=== PATIENT | female | born 1970 | race Caucasian/White ===

== ENCOUNTER 2020-05-15 09:39 | Outpatient (CLI) | payer OTHER, SELFPAY ==
--- NOTE | ~2020-05-15 | MM_ITS ---
EXAMINATION: MM screening vic BI w elyse HISTORY: Screening mammogram TECHNIQUE: Craniocaudal and mediolateral oblique 3-D tomosynthesis images were obtained and synthetic 2-D images were generated. CAD analysis was submitted and interpreted. COMPARISON: 920 , , 01/27/2017 bilateral digital screening mammogram examinations BREAST PARENCHYMAL COMPOSITION: There are scattered areas of fibroglandular density. FINDINGS: Occasional 6 mm or smaller low-density circumscribed opacities are noted in the right breas t, predominantly laterally. There is no evidence of suspicious mass, calcification, or architectural distortion to suggest malignancy in either breast. There has been no suspicious interval change. IMPRESSION: 1. No mammographic evidence of malignancy. 2. Recommend routine screening mammography in one year. BI-RADS Category 2: Benign finding(s). Reviewed, dictated and finalized at location A.
== END 2020-05-15 09:40 | disposition home or self-care (01) ==
LOC: ANHIMG 09:43
PROVIDERS: PCP Internal Medicine; Visit Provider Obstetrics & Gynecology
DX: Z12.31 Encounter for screening mammogram for malignant neoplasm of breast (principal)
CPT/HCPCS: 77063; 77067

== ENCOUNTER 2021-05-29 07:39 | Outpatient (CLI) | payer OTHER, SELFPAY ==
--- NOTE | ~2021-05-29 | MM_ITS ---
EXAMINATION: MM screening vic BI w elyse HISTORY: Screening mammogram TECHNIQUE: Craniocaudal and mediolateral oblique 3-D tomosynthesis images were obtained and synthetic 2-D images were generated. CAD analysis was submitted and interpreted. COMPARISON: 05/15/2020, 04/03/2019, 03/09/2018 bilateral screening mammogram examinations BREAST PARENCHYMAL COMPOSITION: There are scattered areas of fibroglandular density. FINDINGS: Occasional 7 mm or smaller low-density stable benign-appearing circumscribed opacities are noted. There is no evidence of suspicious mass, calcification, or architectural distortion to suggest malignancy in either breast. There has been no suspicious interval change. IMPRESSION: 1. No mammographic evidence of malignancy. 2. Recommend routine screening mammography in one year. BI-RADS Category 2: Benign finding(s). Reviewed, dictated and finalized at location A. ER DOOR ASSEMBLER
== END 2021-05-29 07:40 | disposition home or self-care (01) ==
LOC: ANHIMG 07:41
PROVIDERS: PCP Internal Medicine; Visit Provider Obstetrics & Gynecology
DX: Z12.31 Encounter for screening mammogram for malignant neoplasm of breast (principal)
CPT/HCPCS: 77063; 77067

== ENCOUNTER 2022-08-19 08:15 | Outpatient (CLI) | payer OTHER, SELFPAY ==
--- NOTE | ~2022-08-19 | MM_ITS ---
EXAMINATION: MM screening vic BI w elyse HISTORY: Screening TECHNIQUE: Craniocaudal and mediolateral oblique 3-D tomosynthesis images were obtained and synthetic 2-D images were generated. CAD analysis was submitted and interpreted. COMPARISON: Comparison to multiple prior studies sequentially, with oldest reviewed study dated 12/08. BREAST PARENCHYMAL COMPOSITION: There are scattered areas of fibroglandular density. FINDINGS: There is no evidence of suspicious mass, calcification, or architectural distortion to sugg est malignancy in either breast. There has been no suspicious interval change. IMPRESSION: 1. No mammographic evidence of malignancy. 2. Recommend routine screening mammography in one year. BI-RADS Category 1: Negative Reviewed, dictated and finalized at location A. DRIVING SUPERVISOR
== END 2022-08-19 08:16 | disposition home or self-care (01) ==
PROVIDERS: PCP Internal Medicine; Visit Provider Obstetrics & Gynecology
DX: Z12.31 Encounter for screening mammogram for malignant neoplasm of breast (principal)
CPT/HCPCS: 77063; 77067

== ENCOUNTER → 2022-10-05 07:31 | Outpatient (CLI) | payer OTHER, SELFPAY ==
--- NOTE | ~2022-10-05 | MR_ITS ---
MRI of the cervical spine Clinical History: Bile stenosis Technique: Axial T2-weighted and gradient images, and sagittal T1-weighted, T2-weighted, and STIR tabatha ges were acquired. Findings: There is straightening of the normal cervical lordosis. No fracture or sublocation seen. No suspicious bone marrow signal abnormality seen. At C2-C3, there is no significant disc bulge or herniation. No spinal canal stenosis, cord compressio n, or neural foraminal narrowing. At C3-C4, there is no significant disc bulge or herniation. No spinal canal stenosis, cord compressio n, or definite neural foraminal narrowing. At C4-C5, there is no disc bulge or herniation. No spinal canal stenosis, cord compression, or defini te neural foraminal narrowing. At C5-C6, disc osteophyte complex results in mild canal stenosis and mild flattening of the ventral c ord. There is probable left neural foraminal narrowing. Right neural foramen preserved. At C6-C7, diffuse disc osteophyte complex results in mild canal stenosis and mild ventral cord flatte nadja/compression. There is bilateral neural foraminal narrowing, left worse than right. No abnormal signal seen in the spinal cord itself. Paravertebral soft tissues are unremarkable. Impression: Mild canal stenosis and ventral cord flattening/compression at C5-C6 and C6-C7, related to disc osteo phyte complexes. There is neural foraminal narrowing at these levels, as detailed above. Reviewed, dictated and finalized at [facility]. Impression: Mild canal stenosis and ventral cord flattening/compression at C5-C6 and C6-C7, related to disc osteophyte complexes. There is neural foraminal narrowing at t hese levels, as detailed above.
== END ==
PROVIDERS: PCP Internal Medicine; Visit Provider Orthopaedic Surgery
DX: M48.02 Spinal stenosis, cervical region (principal)
CPT/HCPCS: 72141

== ENCOUNTER 2023-09-14 09:07 | Outpatient (CLI) | payer OTHER, SELFPAY ==
--- NOTE | ~2023-09-14 | MM_ITS ---
EXAMINATION: MM screening vic BI w elyse HISTORY: Screening TECHNIQUE: Craniocaudal and mediolateral oblique 3-D tomosynthesis images were obtained and synthetic 2-D images were generated. CAD analysis was submitted and interpreted. COMPARISON: Comparison to multiple prior studies sequentially, with oldest reviewed study dated 01/27. BREAST PARENCHYMAL COMPOSITION: There are scattered areas of fibroglandular density. FINDINGS: There is no evidence of suspicious mass, calcification, or architectural distortion to sugg est malignancy in either breast. There has been no suspicious interval change. IMPRESSION: 1. No mammographic evidence of malignancy. 2. Recommend routine screening mammography in one year. BI-RADS Category 1: Negative Reviewed, dictated and finalized at location A. ONAL RECRUITER
== END 2023-09-14 09:08 | disposition home or self-care (01) ==
LOC: ANHIMG 09:10
PROVIDERS: PCP Obstetrics & Gynecology; Visit Provider Obstetrics & Gynecology
DX: Z12.31 Encounter for screening mammogram for malignant neoplasm of breast (principal)
CPT/HCPCS: 77063; 77067

== ENCOUNTER 2024-09-20 07:57 | Outpatient (CLI) | payer OTHER, SELFPAY ==
--- NOTE | ~2024-09-20 | MM_ITS ---
EXAMINATION: MM screening [facility] BI w elyse HISTORY: Screening mammogram TECHNIQUE: Craniocaudal and mediolateral oblique 3-D tomosynthesis images were obtained and synthetic 2-D images were generated. CAD analysis was submitted and interpreted. COMPARISON: 09/14/2023, 09/06/2022, 05/29/2021 BREAST PARENCHYMAL COMPOSITION:Not Dense. There are scattered areas of fibroglandular density. FINDINGS: No suspicious mass, calcification, or architectural distortion are identified in either ro ast to suggest malignancy. There has been no suspicious interval change. IMPRESSION: No mammographic evidence of malignancy. Recommend routine screening mammography in one year. BI-RADS Category 1: Negative Reviewed, dictated and finalized at location . P RESERVATIONS COORDINATOR
--- OUTSIDE RECORDS SUMMARY | 2024-09-20 08:06 | XMS_ITS | Clinical Summary ---
Author Organization [facility] Address [address] [place] [id number] Care Team Providers Care Md Pediatric Allergist Name Role Phone TiffanieNat Seth VELÁZQUEZ Primary Care Provider [phone] Allergies No known active allergies Medications Cholecalciferol (VITAMIN D-3) 125 MCG (5000 UT) Tab Take 1 tablet (125 mcg total) by mouth daily. 04/19/2018 Active Multiple Vitamins-Mineral s (MULTIVITAL) Tab Take 1 tablet by mouth daily. 08/06/2015 Active Active Problems Problem Noted Date Diagnosed Date Thrombocytosis 05/15/2017 Swelling of ankle joint, right 12/17/2016 Immunizations Name Administration Dates Next Due Fluzone Adult - >Age 3 (Prefilled Syringe) 04/28 Influenza (Generic) 04/28/2020 MODERNA COVID-19 (12+) MRNA, LNP-S, PF, 100 MCG/ 0.5 ML DOSE 12/03/2020,11/05/2020 Td, Adsorbed, Preservative F ree, Adult Use, Lf Unspecified 01/26/2022,05/19/2020 Family History Medical History Relation Comments Diabetes Father Heart Disease Father Stroke Mother Relation Status Comments Father Alive Mother Alive Social History Tobacco Use Types Packs/Day Years Used Date Smoking Tobacco: Never Smokeless Tobacco: Never Tobacco Cessation:Counseling Given: No Alcohol Use Standard Drinks/Week Comments Yes 0 (1 standard drink = 0.6 oz pur e alcohol) socially PHQ-2 Answer Date Recorded Patient Health Questionnaire-2 Score 0 12/05/2023 Comments No Sex and Gender Information Value Date Recorded Sex Assigned at Not on file Legal Sex Female 4:45 PM CDT Gender Identity Not on file Sexual Orientation Not on file Last Filed Vital Signs Vital Sign Reading Time Taken Comments Blood Pressure 124/80 12/05/2023 4:37 PM CDT Pulse 111 12/05/2023 4:32 PM CDT Temperature 37.3 C (99.2 F) 12/05/2023 4:32 PM CDT Respiratory Rate 20 12/05/2023 4:32 PM CDT Oxygen Saturation 97% 12/05/2023 4:32 PM CDT Inhaled Oxygen Concentration - - Weight 76.7 kg (169 lb) 12/05/2023 4:32 PM CDT Height 154.9 cm (5' 1 ) 12/05/2023 4:32 PM CDT Body Mass Index 31.93 12/05/2023 4:32 PM CDT Plan of Treatment Health Maintenance Due Date Last Done Comments Cervical Cancer Screening Pap Smear (Age 30 to 64) Every 3 Years 1968 Hepatitis B Vaccines (1 of 3 - 19+ 3-dose series) 1987 Zoster Vaccines (1 of 2) 2018 Cervical Cancer Screening Pap with HPV Testing (Age 30 to 64) Every 5 Years 11/25/2020 11/26/2015 Cervical Cancer Screening with HPV 11/25/2020 Annual Physical 02/24/2023 02/24/2022 COVID-19 Vaccine ( season) 2024 12/03/2020, 11/05/2020 Influenza Adult (#1) 2024 04/28/2020, 04/28/20 PHQ-2 (Physician [place]) 07/18/2024 12/05/2023 Mammogram Screening 08/19/2024 08/19/2022, 05/29/2021, 05/15/2020, Additional history exists PHQ-2 (Physician [place]) 12/04/2024 12/05/2023 Colorectal Cancer Screening FIT-DNA (3 Years) 02/08/2025 02/08/2022, 02/08/2022 DTaP, Tdap and Td Vaccines (2 - Td or Tdap) 06/05/2032 06/05/2022, 01/26/2022, 05/19/2020 Hepatitis C Completed 05/19/2020 Meningococcal B Vaccine Aged Out No l onger eligible based on patient's age to complete this topic Meningococcal Vaccine Aged Out No jillian edgar eligible based on patient's age to complete this topic Pneumococcal Vaccine: Pediatrics (0 to 5 Years) and At-Risk Patients (6 to 64 Years) Aged Out No longer eligible based on patient's age to complete this topic RSV Immunizations Under 20 Months Aged Out No longer eligible based on patient's age to complete this topic Procedures Procedure Name Priority Date/Time Associated Diagnosis Comments MAMMOGRAM GENERIC (SCAN ORDER) 08/19/2022 COLOGUARD (EXACT SCIENCE) Routine 02/08/2022 6:40 AM CDT Screening for colon cancer HEPATITIS C ANTIBODY Routine 05/19/2020 12:04 PM UNDERGRADUATE ADVISOR Need for hepatitis C screening test OUTSIDE CYTOPATH CERV/VAG INTERPRET (PAP) Routine 11/26/2015 from Last 3 Months or Most Recently Relevant to Health Maintenance Results * MAMMOGRAM GENERIC (08/19/2022) Anatomical Region Laterality Modality Other 08/19/2022 [facility] Scanned SCANNING Final Resu lt * COLOGUARD (EXACT SCIENCE) (02/08/2022 6:40 AM CDT) COLOGUARD RESULT Negative Negative [employer] (CLIA #:[id number]) Comment: NEGATIVE TEST RESULT. A negative Cologuard result indicates a low likelihood that a colorectal cancer (CRC) or advanced adenoma (adenomatous polyps with more advanced pre-malignant features) is present. The chance that a person with a negative Cologuard test has a colorectal cancer is less than 1 in 1500 (negative predictive value >99.9%) or has an advanced adenoma is less than 5.3% (negative predictive value 94.7%). These data are based on a prospective cross-sectional study of 10,000 individuals at average risk for colorectal cancer who were screened with both Cologuard and colonoscopy. (Delfino Louis al, N Engl J Med 2014;370(14):3370-5807) The normal value (reference range) for this assay is negative. COLOGUARD RE-SCREENING RECOMMENDATION: Periodic colorectal cancer screening is an important part of preventive healthcare for asymptomatic individuals at average risk for colorectal cancer. Following a negative Cologuard result, the [place] [employer] and U.S. Multi-Society Task Force screening guidelines recommend a Cologuard re-screening interval of 3 years. References: [place] [employer] Guideline for Colorectal Cancer Screening: https://www.cancer.org/cancer/sceje-fejyzq-kiwuny/qjudrxjts-knwslaqbs-wikweoq/ac s-rec ommendations.html.; Amadou DK, Ac HERNANDEZ, Nicholas WarrenK, Colorectal Cancer Screening: Recommendations for Physicians and Patients from the U.S. Multi-Society Task Force on Colorectal Cancer Screening , Am J Gastroenterology 2017; 112:7637-7730. TEST DESCRIPTION: Composite algorithmic analysis of stool DNA-biomarkers with hemoglobin immunoassay. Quantitative values of individual biomarkers are not reportable and are not associated with individual biomarker result reference ranges. Cologuard is intended for colorectal cancer screening of adults of either sex, 45 years or older, who are at average-risk for colorectal cancer (CRC). Cologuard has been approved for use by the U.S. FDA. The performance of Cologuard was established in a cross sectional study of average-risk adults aged 50-84. Cologuard performance in patients ages 45 to 49 years was estimated by sub-group analysis of near-age groups. Colonoscopies performed for a positive result may find as the most clinically significant lesion: colorectal cancer [4.0%], advanced adenoma (including sessile serrated polyps greater than or equal to 1cm diameter) [20%] or non- advanced adenoma [31%]; or no colorectal neoplasia [45%]. These estimates are derived from a prospective cross-sectional screening study of 10,000 individuals at average risk for colorectal cancer who were screened with both Cologuard and colonoscopy. (Delfino Louis al, N Engl J Med 2014;370(14):7340-4034.) Cologuard may produce a false negative or false positive result (no colorectal cancer or precancerous polyp present at colonoscopy follow up). A negative Cologuard test result does not guarantee the absence of CRC or advanced adenoma (pre-cancer). The current Cologuard screening interval is every 3 years. ([place] [employer] and U.S. Multi-Society Task Force). Cologuard performance data in a 10,000 patient pivotal study using colonoscopy as the reference method can be accessed at the following location: www.[employer]/results. Additional description of the Cologuard test process, warnings and precautions can be found at www.cologMetanautixrd.com. STOOL STOOL SPECIMEN / Unknown 02/08/2022 6:40 AM CDT 02/09/2022 5:30 PM CDT Lazara Maguire NP BODY FLUIDS AND STOOLS ORDERABLE S Final Result Performing Organization Address City/[facility] Co de Phone Number [employer] [facility] [address] [facility]) [address] [employer] [address], [employer] (CLIA #:[id number]) [address] [address] * HEPATITIS C ANTIBODY (05/19/2020 12:04 PM UNDERGRADUATE ADVISOR) HEPATITIS C AB NON-REACTI VE NON-REACTI VE 05/19/2020 10:58 PM UNDERGRADUATE ADVISOR [facility] 05/19/2020 12:0 4 PM UNDERGRADUATE ADVISOR Thuy Call MD LABORATORY Final Result Performing Organization Address City/[facility] Co de Phone Number [facility] [address] [place] [address], [place] [phone] * PAP SMEAR WITH HPV (11/26/2015) 11/26/2015 us Documents Scanned SCANNING Final Result Performing Organization Address City/[facility]/ZIP Co de Phone Number [facility] from Last 3 Months or Most Recently Relevant to Health Maintenance Insurance [employer] [facility] Care Teams Md Pediatric Allergist Relationship Specialty Start Date End Date Nat Moreno APRN [id number] [place] [id number] PCP - General NURSE PRACTITIONER 10/22/22
--- OUTSIDE RECORDS SUMMARY | 2024-09-20 08:06 | XMS_ITS | Data Portability ---
Author Organization [place] [facility], Main Office Address [address] [place] [address] Care Team Providers [facility] [place] Name Role Phone ARCHANA KOROMA Primary Care Provider ARCHANA KOROMA Referring Provider Assessment Encounter Date Assessment Date Assessment LastModified by Organization Details LastModified Time 09/23/2022 09/23/2022 Patient returns, she has stenosis of her cervical spine and rotator cuff pathology left shoulder. I recommended a course of conservative treatment and she tended to get better for a period time> Unfortunately the pain has recurred and is about the same as it was for intially. I am particularly concerned about the radicular pain I think we need an MRI of her cervical spine to assess this. I will see her back after that is done and we will base our next treatment decision on that. Will refill her prednisone for prescription drug management, for pain and inflammation. Not available 09/23/2022 14:32:36 10/14/2022 10/14/2022 Patient returns left-sided shoulder pain and back pain. She does have pain that radiates down to her hand as well. She presents with an MRI scan that was done at [facility]. I reviewed the results of the MRI scan as well as the pictures himself. I think the MRI is under read. She has a stenosis particularly of C6-7 and some at C5-6 interestingly she has got a herniated disc but it is going out anteriorly at C6-7 which isn't mention report pain is tolerable at this point she is not interested in surgery. We will try some anti-inflammator y medication for prescription drug management gave her prescription for Voltaren for pain and inflammation. She will continue with therapy I will see her back in a month for follow-up. We talked about epidurals will await see if she improves on this regimen. Not available 10/14/2022 09:38:39 11/11/2022 11/11/2022 Patient has cervical stenosis and disc herniations. She got reasonable relief from diclofenac portion pain persists she is not reach her treatment goals. Recommend she continue with therapy for prescription drug management will try Voltaren with a refill. This does not work the next step is epidural injections referral to a spine surgeon. If she has markedly increasing symptoms, she is to call me immediately reuben Not available 11/11/2022 14:48:51 Plan of Treatment Reminders Order Date Submit Date Provider Last Modified By Organization Details Last Modified Time Details Appointments None recorded. Lab None recorded. Referral None recorded. Procedures None recorded. Surgeries None recorded. Imaging MRI, cervical spine, w/o contrast - please give patient a copy of images on disc 2022 023 [facility], [address], [place], [address], 3 10:40:26 Medication Orders diclofenac sodium 75 mg tablet,mirna yed release [address] [facility], [address] [facility] [address] [place] [address], [address], 14:46:43 diclofenac sodium 75 mg tablet,mirna yed release [address], [address], [address], 09:36:53 prednisone 10 mg tablets in a dose pack [address], [address], [address], 14:45:58 Patient TargetsNo targets recorded. Patient InstructionsNo instructions recorded. Reason for Referral None Reported. Results Created Date Observation Date Name Description Value Unit Range Abnormal Flag Note LastModifiedBy Organization Detail LastModifiedTime 08/03/19 23 XR, shoul taylor, 2 or more view No observ ation record ed. [id number] [facility] [address], [place], [address], 09/16/2022 01:48:59 10/06/19 23 10/05/2022 MRI, cervi kaelyn spine , w/o contr ast No observ ation record ed. [email or web address] [facility] [address], [place], [address], 10/05/2022 10:54:07 Result Notes None recorded. Problems Name Problem SNOMED Code Status Onset Date Resolution Date Notes Provider Name and Address Organization Details Recorded Time Chronic back pain 235532062 Active 2022 Not Available [facility] 3 01:48:14 Pain of left shoulder joint 61527246145470 109 Active 2022 Not Available [facility] 3 01:48:14 Spinal stenosis in cervical region 67879481 Active 2022 Not Available [facility] 3 01:48:14 Problem Notes None recorded. Procedures Surgical History Date Name Laterality Status Provider Name and Address Organization Details Recorded Time Hernia Repair completed Not Available [facility] 09/16/2022 01:47:55 Imaging Results Imaging Date Name Status LastModified by Organiz ation Details LastModified Time 08/03/2022 XR, shoulder, 2 or more view completed [id number] [facility] [address], [place], [address], 09/16/2022 01:48:59 10/05/2022 MRI, cervical spine, w/o contrast completed [email or web address] [address], [place], [address], 10/05/2022 10:54:07 Procedure Notes None recorded. Medical Equipment None Reported. Medications Name Sig Start Date Stop Date Status Note LastModified by Organization Details LastModified Time prednisone 10 mg tablet TAKE 1 TABLET BY MOUTH THREE TIMES DAILY FOR 3 DAYS THEN 1 TWICE DAILY FOR 2 DAYS THEN 1 ONCE DAILY FOR 1 DAY active Not Available Not Available No t Available prednisone 10 mg tablets in a dose pack Take 1 tab by mouth, 3 times a day for 3 daysTake 1 tab by mouth 2 times a day for 2 daysTake 1 tab by mouth once a day for 1 day 2022 active Not Available Not Available Not Avai lable diclofenac sodium 75 mg tablet,mirna yed release TAKE 1 TABLET BY MOUTH TWICE DAILY active Not Available Not Available No t Available [facility] COVID-19 Antigen Home Test kit TEST DIRECTED TODAY 08/03 completed Not Available Not Available Not Available Vitals Date Recorded Body mass index (BMI) Body height Body weight Provider Name and Address Organization Details Last Updated DateTime 08/03/2022 29.3 kg/m2 154.94 cm 89566.82 g Not Available [facility] 09/16/2022 01:48:00 Date Recorded Body mass index (BMI) Body height Body weight Provider Name and Address Organization Details Last Updated DateTime 08/31/2022 31.2 kg/m2 154.94 cm 64311.74 g Not Available [facility] 09/16/2022 01:48:00 Date Recorded Body height Body mass index (BMI) Body weight Provider Name and Address Organization Details Last Updated DateTime 09/23/2022 154.94 cm 32.1 kg/m2 17952.7 g RENO Arroyo [place] [facility] 09/23/2022 14:08:50 Date Recorded Body height Body mass index (BMI) Body weight Provider Name and Address Organization Details Last Updated DateTime 10/14/2022 154.94 cm 31.7 kg/m2 05963.52 g Rashmi Hatch CNA [place] [facility] 10/14/2022 09:07:10 Date Recorded Body height Body mass index (BMI) Body weight Provider Name and Address Organization Details Last Updated DateTime 11/11/2022 154.94 cm 31.7 kg/m2 52507.52 g Rahel Majano [place] [facility] 11/11/2022 14:05:43 Social History Question Answer Notes LastModified by Organizat ion Details LastModified Time Tobacco Smoking Status Never Smoker Not Available [facility] 09/16/2022 01:47:24 What Is Your Level Of Alcohol Consumption? Occasional [id number] Information not available 09/16/2022 Sex: Unknown Functional Status None recorded. Mental Status None recorded. Family History Relationship Description Onset Age of this Age Resolved Age Notes LastModified by Organization Details LastModified Time Father Heart disease [id number] Not available 09/16/2022 01:47:56 Father Diabetes mellitus [id number] Not available 09/16/2022 01:47:56 Mother Cerebrovascu lar accident [id number] Not available 09/16/2022 01:47:56 Medical History No medical history recorded. Gynecological HistoryNo gynecological history recorded. Obstetrics History GPAL:G 0 P 0 0 0 0 Past Encounters Encounter ID Performer Location Encounter Start Date Encounter Closed Date Diagnosis/Indication Diagnosis SNOMED-CT Code Diagnosis ICD10 Code Diagnosis Note [id number] [facility] [address] [place] [address] 08/03/2022 00:00:00 08/03/2022 15:50:02 [id number] [facility] [address] [place] [address] 08/31/2022 00:00:00 08/31/2022 15:09:07 [id number] Carlos Eduardo Morales MD [facility] [address] [place] [address] 09/23/2022 14:05:07 09/23/2022 16:30:08 Pain of left shoulder joint 3841227606 6411489 M25.512 Chronic back pain 669542 002 M54.2 Spinal chang nosis in cervical region 02416537 M48.02 [id number] Carlos Eduardo Morales MD [facility] [address] [place] [address] 10/14/2022 09:04:07 10/14/2022 09:57:42 Chronic back pain 679769617 M54.2 Pain of le ft shoulder joint 2054936954 9172978 M25.512 Spinal chang nosis in cervical region 97630684 M48.02 [id number] Carlos Eduardo Morales MD [facility] [address] [place] [address] 11/11/2022 14:02:37 11/11/2022 17:04:43 Spinal stenosis in cervical region 62994596 M48.02 Pain of le ft shoulder joint 8968641270 2616026 M25.512 Chronic back pain 028091 002 M54.2 Health Concerns Section Related Observation LastModified by Organization Detai ls LastModified Time None Recorded Concern Status LastModified by Organization Details LastModified Time None Recorded Advance Directives Directive None Recorded Payers Encounter Date Sequence Insurance Name Policy Number Policy Freitas Covered Member ID Freitas Member ID Guarantor Name 09/23/2022 1 [employer] - [facility] [employer] Thu Burger [id number] S0I Thu Burger 10/14/2022 1 [employer] - [employer] - OPEN ACCESS Thu Burger [id number] S0I Thu Burger 11/11/2022 1 [employer] - [employer] - OPEN ACCESS Thu Burger [id number] S0I Thu Burger Notes Date Note Type Note Provider Name and Address Organization Details Recorded Time 08/03/2022 text/html C-spineReported bypatient.Location :posterior; deep Quality:throbbing; frequent Severity:moderate Timing:chronic; recurrent Context:lifting; twisting; overuse Alleviating Factors:lying down; ice; rest; exercise; stretching; NSAIDs Aggravating Factors:lifting; carrying; exercise Associated Symptoms:no numbness; no tingling; no redness; no warmth; no ecchymosis; no catching/locking; no popping/clicking; no buckling; no grinding; no instability; no radiation down arm; no drainage; no fever; no chills; no weight loss; no change in bowel/bladder habits;weakness;sw elling Not Available [facility] [employer] 08/03/2022 15:50:02 08/31/2022 text/html C-spineReported bypatient.Location :posterior; deep Quality:throbbing; frequent Severity:moderate Timing:chronic; recurrent Context:lifting; twisting; overuse Alleviating Factors:lying down; ice; rest; exercise; stretching; NSAIDs Aggravating Factors:lifting; carrying; exercise Associated Symptoms:no numbness; no tingling; no redness; no warmth; no ecchymosis; no catching/locking; no popping/clicking; no buckling; no grinding; no instability; no radiation down arm; no drainage; no fever; no chills; no weight loss; no change in bowel/bladder habits;weakness;sw elling Not Available [facility] 08/31/2022 15:09:07 09/23/2022 text/html Patient returns stenosis cervical spine. She also has rotator cuff pathology left. She got better with the conservative treatment however she returned is basically back to her was. She has radiating pain down her neck to her fingers and has the paresthesias there. Carlos Eduardo Morales MD [address], [place], [address], [facility] 09/23/2022 14:32:54 10/14/2022 text/html Patient returns stenosis cervical spine. She also has rotator cuff pathology left. She got better with the conservative treatment however she returned is basically back to her was. She has radiating pain down her neck to her fingers and has the paresthesias there. Carlos Eduardo Morales MD [address], [place], [address], [employer] [facility] 10/14/2022 09:38:42 11/11/2022 text/html patient presents in neck and shoulder pain. Her MRI scan show fairly significant stenosis with disc. The Voltaren seems to have helped a bit she remains symptomatic however rec she has done physical therapy. Carlos Eduardo Morales MD [address], [place], [address], [employer] [facility] 11/11/2022 14:49:05 OBGyn Episode No OBEpisode recorded.
== END 2024-09-20 07:58 | disposition home or self-care (01) ==
LOC: ANHIMG 08:00
PROVIDERS: PCP Obstetrics & Gynecology; Visit Provider Obstetrics & Gynecology
DX: Z12.31 Encounter for screening mammogram for malignant neoplasm of breast (principal)
CPT/HCPCS: 77063; 77067